=== PATIENT | female | born 1965 | race Caucasian/White ===

== ENCOUNTER 2018-03-02 12:53 | Emergency (ER) | payer BC ==
[2018-03-02] MEDS ORDERED: LORazepam 2 MG/ML SDV IVPUSH STA (13:21)
--- NOTE | 2018-03-02 13:32 | EDM.PDOC ---
ED HPI GENERAL MEDICAL PROBLEM - General Chief Complaint: Neurological Problem Stated Complaint: HBP AND VERTIGO Time Seen by Provider: 03/02/18 13:03 Source of Information: Reports: Patient, RN Notes Reviewed History Limitations: Reports: No Limitations - History of Present Illness INITIAL COMMENTS - FREE TEXT/NARRATIVE: The patient states that she has been feeling vertiginous, by which she means emotionally overwhelmed, for about a year. She had blurry vision yesterday, but denies any other symptoms, including chest pain, palpitations, dyspnea, nausea, vomiting, constipation, diarrhea, tingling of her face or hands, abdominal pain , throat tightness, or sinus issues. The patient went to the walk-in clinic, where her BP was found to be 159/107, therefore she was sent here for further evaluation. The patient states that she was on Paxil for perimenopausal symptoms, but was no longer having symptoms, therefore she and Dr. Mcgrath decided to wean her off of it, starting a little over 2 weeks ago, with her last dose about 10 days ago. The patient has a history of hypertension, for which she takes hydrochlorothiazide. - Related Data Allergies Allergy/AdvReac Type Severity Reaction Status Date / Time alcohol Allergy Rash Verified 03/02/18 13:03 [From Mastisol Adhesive] gum mastic Allergy Rash Verified 03/02/18 13:03 [From Mastisol Adhesive] methyl salicylate Allergy Rash Verified 03/02/18 13:03 [From Mastisol Adhesive] storax Allergy Rash Verified 03/02/18 13:03 [From Mastisol Adhesive] Home Meds: Home Meds hydroCHLOROthiazide [Hydrochlorothiazide] 25 mg PO DAILY 03/02/18 [History] Past Medical History Cardiovascular History: Reports: Hypertension Gastrointestinal History: Reports: GERD Endocrine/Metabolic History: Reports: Obesity/BMI 30+ - Past Surgical History HEENT Surgical History: Reports: Oral Surgery ([place] teeth extraction), Tonsillectomy GI Surgical History: Reports: Appendectomy, Cholecystectomy, Wiley Fundoplication, Other (See Below) (Abdominoplasty) Female Surgical History: Reports: Breast Reduction Musculoskeletal Surgical History: Reports: Other (See Below) (Right ankle repair x 4. Right elbow tendon repair.) Social & Family History - Tobacco Use Smoking Status *Q: Former Smoker Years of Tobacco use: 15 Packs/Tins Daily: 1 Month/Year Tobacco Last Used: Quit 2002 Second Hand Smoke Exposure: No - Caffeine Use Caffeine Use: Reports: Coffee - Alcohol Use Alcohol Use History: Yes Alcohol Use Frequency: Socially (occasionally to excess) - Recreational Drug Use Recreational Drug Use: No - Living Situation & Occupation Living situation: Reports: , with Spouse, with Family (Granddaughter) Occupation: Employed (Residential Case Manager) ED ROS GENERAL - Review of Systems Review Of Systems: ROS reveals no pertinent complaints other than HPI. ED EXAM, GENERAL - Physical Exam Exam: See Below Exam Limited By: No Limitations General Appearance: Alert, WD/WN, Anxious (tearful) Eye Exam: Bilateral Eye: EOMI, Normal Inspection Ears: Normal External Exam, Hearing Grossly Normal Nose: Normal Inspection Throat/Mouth: Normal Inspection, Normal Lips, Normal Oropharynx, Normal Voice, No Airway Compromise Head: Atraumatic, Normocephalic Neck: Normal Inspection, Full Range of Motion Respiratory/Chest: No Respiratory Distress, Lungs Clear, Normal Breath Sounds, No Accessory Muscle Use Cardiovascular: Normal Peripheral Pulses, Regular Rate, Rhythm, No Edema, No Gallop, No JVD, No Murmur, No Rub Peripheral Pulses: 4+: Radial (L), Radial (R) GI/Abdominal: Normal Bowel Sounds, Soft, Non-Tender, No Organomegaly, No Distention, No Abnormal Bruit, No Mass, Other (Obese) (Female) Exam: Deferred Rectal (Female) Exam: Deferred Back Exam: Normal Inspection, Full Range of Motion, NT Extremities: Normal Inspection, Normal Range of Motion, No Pedal Edema, Normal Capillary Refill Neurological: Alert, Oriented, Normal Cognition, No Motor/Sensory Deficits Psychiatric: Anxious Skin Exam: Warm, Dry, Intact, Normal Color, No Rash EKG INTERPRETATION EKG Date: 03/02/18 Time: 13:51 Rhythm: NSR Rate (Beats/Min): 86 [place]: Normal P-Wave: Present QRS: Other (Late transition) ST-T: Normal QT: Prolonged (QTc 486 ms) Comparison: NA - No Prior EKG Course - Vital Signs Last Recorded V/S: Last Vital Signs Temp 36.1 C 03/02/18 12:55 Pulse 90 03/02/18 12:55 Resp 18 03/02/18 12:55 BP 178/100 H 03/02/18 12:55 Pulse Ox 97 03/02/18 12:55 - Orders/Labs/Meds Orders: Active Orders 24 hr Category Date Time Status EKG Documentation Completion [RC] STAT Care 03/02/18 13:21 Active Labs: Laboratory Tests 03/02/18 03/02/18 03/02/18 Range/Units 13:40 14:00 14:00 WBC 6.19 (3.98-10.04) K/mm3 RBC 4.67 (3.98-5.22) M/mm3 Hgb 15.1 (11.2-15.7) gm/L Hct 43.5 (34.1-44.9) % MCV 93.1 (79.4-94.8) fl MCH 32.3 H (25.6-32.2) pg MCHC 34.7 (32.2-35.5) g/dl RDW Std Deviation 43.0 (36.4-46.3) fL Plt Count 253 (182-369) K/mm3 MPV 9.2 L (9.4-12.3) fl Neutrophils % (Manual) 58 (40-60) % Band Neutrophils % 0 (0-10) % Lymphocytes % (Manual) 22 (20-40) % Atypical Lymphs % 0 % Monocytes % (Manual) 10 (2-10) % Eosinophils % (Manual) 9 H (0.7-5.8) % Basophils % (Manual) 1 (0.1-1.2) Platelet Estimate Adequate RBC Morph Comment Normal D-Dimer, Quantitative 0.42 (0.19-0.50) mg/L Sodium 139 (136-145) mEq/L Potassium 3.4 L (3.5-5.1) mEq/L Chloride 104 (98-107) mEq/L Carbon Dioxide 29 (21-32) mEq/L Anion Gap 9.4 (5-15) BUN 14 (7-18) mg/dL Creatinine 1.1 H (0.55-1.02) mg/dL Est Cr Clr Drug Dosing 50.61 mL/min Estimated GFR (MDRD) 53 (>60) mL/min BUN/Creatinine Ratio 12.7 L (14-18) Glucose 113 H (74-106) mg/dL Calcium 9.6 (8.5-10.1) mg/dL Magnesium 2.1 (1.8-2.4) mg/dl Total Bilirubin 0.4 (0.2-1.0) mg/dL AST 38 H (15-37) U/L ALT 63 H (14-59) U/L Alkaline Phosphatase 60 (46-116) U/L Troponin I < 0.017 (0.00-0.056) ng/mL Total Protein 7.5 (6.4-8.2) g/dl Albumin 4.0 (3.4-5.0) g/dl Globulin 3.5 gm/dL Albumin/Globulin Ratio 1.1 (1-2) Meds: Medications Discontinued Medications Generic Name Dose Route Start Last Admin Trade Name Noelle PRN Reason Stop Dose Admin Lorazepam 1 mg 03/02/18 13:21 03/02/18 13:47 Ativan IVPUSH 03/02/18 13:22 1 mg ONETIME STA Administration - Re-Assessments/Exams Free Text/Narrative Re-Assessment/Exam: 03/02/18 13:22 While the patient presented with a complaint of feeling vertiginous, she was not familiar with the definition of vertigo, and what she really means to say is that she just feels generally overwhelmed. She is tearful here in the ED. Suspect that the patient has an underlying anxiety disorder that was kept under control while she was on Paxil, but since she weaned herself off of it about 10 days ago, she is now feeling symptoms of anxiety. I have ordered a workup to make sure that there are no significant lab abnormalities that might explain her symptoms, but in the meantime, I have ordered a milligram of Ativan to help make her feel better, and I suspect that her blood pressure will follow. 03/02/18 15:12 The patient states that she is still feeling overwhelmed, that the Ativan did not help her symptoms very much, but her blood pressure has dropped to 133/94, with a HR of 85. I recommended that the patient restart her Paxil, which she says she can do, as she still has the tablets, and notify Dr. Mcgrath of her decision. The patient can safely be discharged home. Departure - Departure Time of Disposition: 15:13 Disposition: Home, Self-Care 01 Condition: Good Clinical Impression: Anxiety - Discharge Information *PRESCRIPTION DRUG MONITORING PROGRAM REVIEWED*: Not Applicable *COPY OF PRESCRIPTION DRUG MONITORING REPORT IN PATIENT JCARLOS: Not Applicable Referrals: Birgit Em MD [Primary Care Provider] - Forms: ED Department Discharge Additional Instructions: You were seen in the emergency room for feelings of being overwhelmed, blurry vision, and elevated blood pressure. Workup in the ER included blood work and an ECG, all of which were normal. Based on your history, physical examination, and test results, the cause of your symptoms is most likely due to anxiety, brought about by discontinuing Paxil. We recommend that you restart your Paxil at the same dose that you took previously. We recommend that you notify Dr. Mcgrath of your ER visit and restarting Paxil. If any other problems, please do not hesitate to return to the ER. - My Orders Last 24 Hours: My Active Orders 03/02/18 13:21 EKG Documentation Completion [RC] STAT - Assessment/Plan Last 24 Hours: My Active Orders 03/02/18 13:21 EKG Documentation Completion [RC] STAT
== END 2018-03-02 15:27 | disposition home or self-care (01) ==
LOC: JD.ED 12:53
DX: F41.9 Anxiety disorder, unspecified (principal); I10 Essential (primary) hypertension; E66.9 Obesity, unspecified; Z88.8 Allergy status to other drugs, medicaments and biological substances; Z87.891 Personal history of nicotine dependence
CPT/HCPCS: 36415; 80053; 83735; 84484; 85007; 85027; 85379; 93005; 96374; 99284; J2060; 93010